=== PATIENT | female | born 2000 | race Hispanic/Latino ===

== ENCOUNTER 2022-08-28 08:44 | Emergency (ER) | payer MEDICAID ==
[~2022-08-28] VITALS: Ht 167.6 cm; Wt 73.9 kg
[2022-08-28] MEDS ORDERED: ACET-66 PO (10:37)
[2022-08-28 10:46] VITALS: BP 122/74
== END 2022-08-28 10:48 | disposition home or self-care (01) ==
LOC: EDH 08:44
DX: O98.511 Other viral diseases complicating pregnancy, first trimester (principal); U07.1 COVID-19; Z3A.11 11 weeks gestation of pregnancy
CPT/HCPCS: 99283; 87635; 87880; 87804 ×2; C9803